=== PATIENT | female | born 1970 | race Caucasian/White ===

== ENCOUNTER → 2018-09-16 13:46 | Outpatient (CLI) | payer OTHER, SELFPAY | PROVIDERS: Family Provider Family Medicine; PCP Family Medicine; Visit Provider Family Medicine | DX: Z00.00 Encounter for general adult medical examination without abnormal findings (principal) ==

== ENCOUNTER → 2018-10-13 13:35 | Outpatient (CLI) | payer OTHER, SELFPAY ==
[2018-10-13 15:54] LABS: Anion Gap 8 (5-15); BUN 9 mg/dL (7-18); Chloride 104 mmol/L (98-107); Cholesterol 198 mg/dL (200); Creatinine, Serum 0.64 mg/dL (0.55-1.02); EST Glomerular Filtration Rate 104 mL/min (>60); Est Glom Filt Rate - Afr Amer 125 mL/min (>60); Glucose 79 mg/dL (74-106); High Density Lipoprotein 70 mg/dL; Potassium 3.8 mmol/L (3.5-5.1); Sodium Level 141 mmol/L (136-145); Triglycerides 79 mg/dL; Very Low Density Lipoprotein 16 mg/dL (5-40)
[2018-10-13 16:01] LABS: Vitamin D,25 Hydroxy 9.5 ng/mL (29.95-100.01)
[2018-10-17 12:00] LABS: HPV Reflexed? NOT INDICATED
== END ==
PROVIDERS: Nurse Practitioner Adult Health; Family Provider Family Medicine; PCP Family Medicine; Visit Provider Family Medicine
DX: Z01.419 Encounter for gynecological examination (general) (routine) without abnormal findings (principal); Z00.00 Encounter for general adult medical examination without abnormal findings
CPT/HCPCS: 36415; 80048; 80061; 82306; 88175; G0145

== ENCOUNTER → 2018-11-02 17:16 | Outpatient (CLI) | payer SELFPAY ==
--- NOTE | 2018-11-02 17:21 | RAD_ITS ---
STUDY: X-RAY - RIGHT FOOT CLINICAL: Female, 48 years old. Fall TECHNIQUE: 3 view(s) of the foot. COMPARISON: None. FINDINGS: Normal talus, calcaneus, and tarsal bones. Normal visualized subtalar, talonavicular, calcaneocuboid, tarsal and tarsometatarsal articulations. There is a nondisplaced fracture of the base of the fifth metatarsal bone. Normal metatarsophalangeal joint of the great toe. Normal tibial and fibular sesamoid bones. Normal interphalangeal joint of the great toe. Normal phalanges of the great toe. Normal second through fifth metatarsophalangeal joints. Normal interphalangeal joints and phalanges of the lesser toes. There is lateral soft tissue swelling. RAD/Foot min 3 Views IMPRESSION: Fracture of the base of the fifth metatarsal Electronically Signed: Manav Martinez MD at 3:42 EST , Service support ,
== END ==
PROVIDERS: Family Provider Family Medicine; PCP Family Medicine; Referring Provider Family Medicine; Visit Provider Family Medicine
DX: M79.671 Pain in right foot (principal)
CPT/HCPCS: 73630

== ENCOUNTER 2019-12-29 07:00 | Outpatient (RCR) | payer SELFPAY, OTHER ==
--- NOTE | 2019-12-24 15:12 | HP.PTEVAL_ITS ---
Patient's Visit Information MARY ANTHONY is a 49 year old F referred to Physical Therapy by Zachariah Jimenez MD with a diagnosis of R shoulder impingement. Date of Evaluation: 12/24/19 Physical Therapist: Reynaldo Tran, PT, ATC - Visit Plan Frequency: 1x/Week Duration: 2 Weeks Plan: Issue and instruct on HEP focusing on rotator cuff strengthening and scap stab ex's - Subjective Findings: Pt reports she fell off a step stool in August of 2019. Pt reports she didnt have pain immediately, but the pain has remained. Pt reports she is R hand dominant. Pt reports the pain progressively worsened, so she went to the Dr. and received xrays which revealed impingement syndrome of the R shoulder. Pt reports she really only has pain if she uses her R shoulder a lot, or when she is sleeping at night. Pt reports she was having tingling or numbness in R UE, but it has gone away since. Pt notes she has no sleep difficutly secondary to pain. Pt reports he pain is mostly on the lateral aspect of her R humerus. 1/10 pain at rest, 3/10 at worst - Pain R shoulder Pain Intensity (Out of 10): 1 Pain Intensity Range: 3 - Objective Neuro: B UE sensation is WNL to light touch. B bicepital reflex= 2/3. Palpation: Pt is sore along the distribution os the supraspinatus. No obvious deformity present at this time. ROM: L shoulder flex= 165, abd= 150, ER= 65, IR WNL; R shoulder flex= 145, abd= 140, ER= 50, IR WNL. MMT: R shoulder ER= 4/5. All other B UE 5/5 throughout. Special tests: Pos empty can test - Goals Goal 1:: I with HEP after second visit Goal Time Frame: 1 Week - Rehabilitation Potential Physical Therapy Diagnosis: Pt has R shoulder pain, weakness, and limited ROM secondary to R shoulder impingement Rehabilitation Potential: Good - Anticipated Interventions Patient/Client Instruction: Educate patient on: Condition, Plan of Care For the Purpose of:: To improve self management Therapeutic Exercise to Include: Strength training, Endurance training, Scapular Strength/Stabilization For the Purpose of:: To decrease pain, To increase ROM, To improve muscle performance and motor function Cryotherapy (ice pack, ice massage): Yes For the Purpose of:: To decrease pain Thank you for the opportunity to evaluate your patient. For Medicare and Medicare HMO plans, please review the plan of care and approve it. It will need to be FAXED BACK to us at [phone] for Medicare purposes. For Medicare only, by signing this I certify the plan of care. Please let me know if there are questions or concerns regarding this plan of care. Physician Signatur e: Date:
--- NOTE | 2019-12-29 07:54 | HP.PTDCSUM ---
HP - PT D/C Summary It has been my pleasure to treat MARY ANTHONY under orders from Zachariah Jimenez MD, for the diagnosis of R shoulder impingement for a total of 2 visit(s). Discharge Date: Please see the following information for a summary of their discharge status. - Subjective Subjective: Pt reports minimal pain today - Pain R shoulder Pain Intensity (Out of 10): 3 - Objective Objective/Function: Pt harish Rx well. Pt now I with HEP - Goals Goal 1:: I with HEP after second visit - Plan Plan: Discharge - D/C Information If there are questions or concerns regarding this patient's physical therapy, please feel free to call me at [phone]. Thank you for the referral of this patient. Sincerely, Reynaldo Tran, PT, ATC
== END 2019-12-29 10:20 | disposition home or self-care (01) ==
LOC: PT 07:00
PROVIDERS: PCP Family Medicine; Referring Provider Orthopaedic Surgery; Visit Provider Orthopaedic Surgery
DX: M75.41 Impingement syndrome of right shoulder (principal)
CPT/HCPCS: 97110; 97161

== ENCOUNTER → 2025-04-06 | Outpatient (CLI) | payer SELFPAY ==
[2025-04-06 15:54] LABS: Anion Gap 10 (5-15); BUN 15 mg/dL (4-19); BUN/Creat Ratio 19.7 RATIO (10-20); Calcium,Total 9.7 mg/dL (7.6-11.0); Carbon Dioxide 26.1 mmol/L (21.0-32.0); Chloride 102 mmol/L (98-108); Cholesterol 240 mg/dL (<=200); Creatinine, Serum 0.76 mg/dL (0.70-1.20); EST Glomerular Filtration Rate 92 (>60); Glucose 86 mg/dL (70-99); High Density Lipoprotein 76 mg/dL; Low Density Lipoprotein Calc. 148 mg/dL; Potassium 4.3 mmol/L (3.3-5.1); Sodium Level 138 mmol/L (133-145); Triglycerides 83 mg/dL; Very Low Density Lipoprotein 17 mg/dL (5-40); cholesterol:hdl ratio screen 3.17
== END | disposition home or self-care (01) ==
PROVIDERS: PCP Family Medicine; Referring Provider Family Medicine; Visit Provider Family Medicine
DX: Z00.00 Encounter for general adult medical examination without abnormal findings (principal)
CPT/HCPCS: 36415; 80048; 80061

== ENCOUNTER → 2025-06-14 | Outpatient (CLI) | payer SELFPAY ==
--- NOTE | 2025-06-14 15:13 | BI_ITS ---
EXAM: SCRN MAMM (CAD)W/MONIQUE BILAT DATE: 06/14/2025 CLINICAL HISTORY: F, Age 54 y/o , SCREENING TECHNIQUE: SCRN MAMM (CAD)W/MONIQUE BILAT COMPARISON: None available FINDINGS: TISSUE DENSITY: The breasts are extremely dense, which lowers the sensitivity of mammography. Bilateral Breast Mammographic Findings: No suspicious masses, calcifications or other abnormalities are identified. BI/SCRN MAMM (CAD)W/MONIQUE BILAT IMPRESSION: No mammographic evidence of malignancy in either breast OVERALL FINAL ASSESSMENT BI-RADS 1: NEGATIVE. RECOMMENDATION: Routine annual follow-up in 1 Year A letter with findings and recommendations will be mailed to the patient. Reading Location: [id number]
--- NOTE | 2025-06-14 15:13 | BD_ITS ---
PROCEDURE: DEXA BONE DENSITY STUDY 06/14/2025 REASON FOR EXAM: F, age 54 y/o . Postmenopausal. TECHNIQUE: DEXA BONE DENSITY STUDY COMPARISON: None FINDINGS: BMD and T-SCORES Lumbar spine: 0.686 g/cm2, T-score -3.3 Levels: L1 through L4 Left femoral neck: 0.635 g/cm2, T-score -1.9 Femoral neck comparison data not recommended for monitoring change. Left total hip: 0.819 g/cm2, T-score -1.0 Right femoral neck: 0.645 g/cm2, T-score -1.8 Femoral neck comparison data not recommended for monitoring change. Right total hip: 0.799 g/cm2, T-score -1 point The World Health Organization has defined the following categories based on bone density: Normal bone density: T-score equal to or greater than -1.0 Osteopenia: T-score between -1.0 and -2.5 Osteoporosis: T-score equal to or less than -2.5 The patient does meet the pharmacological treatment recommendations for prevention of osteoporosis. BD/Dexa Bone Density Study IMPRESSION: OSTEOPOROSIS. Recommend follow-up as clinically warranted. Reading Location: [facility]
--- NOTE | 2025-06-14 15:13 | BI_ITS ---
EXAM: SCRN MAMM (CAD)W/MONIQUE BILAT DATE: 06/14/2025 CLINICAL HISTORY: F, Age 54 y/o , SCREENING TECHNIQUE: SCRN MAMM (CAD)W/MONIQUE BILAT COMPARISON: None available FINDINGS: TISSUE DENSITY: The breasts are extremely dense, which lowers the sensitivity of mammography. Bilateral Breast Mammographic Findings: No suspicious masses, calcifications or other abnormalities are identified. BI/SCRN MAMM (CAD)W/MONIQUE BILAT IMPRESSION: No mammographic evidence of malignancy in either breast OVERALL FINAL ASSESSMENT BI-RADS 1: NEGATIVE. RECOMMENDATION: Routine annual follow-up in 1 Year A letter with findings and recommendations will be mailed to the patient. Reading Location: [id number]
--- NOTE | 2025-06-14 15:13 | BD_ITS ---
PROCEDURE: DEXA BONE DENSITY STUDY 06/14/2025 REASON FOR EXAM: F, age 54 y/o . Postmenopausal. TECHNIQUE: DEXA BONE DENSITY STUDY COMPARISON: None FINDINGS: BMD and T-SCORES Lumbar spine: 0.686 g/cm2, T-score -3.3 Levels: L1 through L4 Left femoral neck: 0.635 g/cm2, T-score -1.9 Femoral neck comparison data not recommended for monitoring change. Left total hip: 0.819 g/cm2, T-score -1.0 Right femoral neck: 0.645 g/cm2, T-score -1.8 Femoral neck comparison data not recommended for monitoring change. Right total hip: 0.799 g/cm2, T-score -1 point The World Health Organization has defined the following categories based on bone density: Normal bone density: T-score equal to or greater than -1.0 Osteopenia: T-score between -1.0 and -2.5 Osteoporosis: T-score equal to or less than -2.5 The patient does meet the pharmacological treatment recommendations for prevention of osteoporosis. BD/Dexa Bone Density Study IMPRESSION: OSTEOPOROSIS. Recommend follow-up as clinically warranted. Reading Location: [facility]
== END | disposition home or self-care (01) ==
LOC: OPBD 15:10
PROVIDERS: PCP Family Medicine; Referring Provider Family Medicine; Visit Provider Family Medicine
DX: Z12.31 Encounter for screening mammogram for malignant neoplasm of breast (principal); Z78.0 Asymptomatic menopausal state; M81.0 Age-related osteoporosis without current pathological fracture
CPT/HCPCS: 77063; 77067; 77080